=== PATIENT | male | born 1995 | race Two or more races ===

== ENCOUNTER 2017-01-10 12:24 | Emergency (ER) | payer MEDICAID, OTHER ==
--- NOTE | 2017-01-10 13:24 | RAD ---
Name: BRANDON Tolbert Exam: Right elbow Comparison: None Clinical history: Fall on 01/08/2017. Right elbow pain. Initial encounter. Findings: 3 views of the right elbow are submitted. Bone density is within normal limits. Articular relationships are normal. Small joint effusion is suspected. There is no dislocation periosteal action foreign body or obvious fracture. Impression: Small right elbow effusion is suspected. Occult fractures not excluded on this exam. Repeat plain films in 7-10 days may be helpful.
== END 2017-01-10 14:25 | disposition home or self-care (01) ==
LOC: ED 12:24
DX: M25.521 Pain in right elbow (principal); W10.9XXA Fall (on) (from) unspecified stairs and steps, initial encounter; Y92.9 Unspecified place or not applicable